=== PATIENT | male | born 1975 | race Caucasian/White ===

== ENCOUNTER 2023-12-21 13:24 | Inpatient (IN) | payer OTHER ==
--- NOTE | 2023-12-21 13:49 | ED ---
General Adult HPI - General Source: patient, RN notes reviewed <Sara Ledesma - Last Filed: 12/21/23 13:51> - General Source: RN notes reviewed <Joie Catherine - Last Filed: 12/21/23 19:26> - General Stated complaint: chest pain Time Seen by Provider: 12/21/23 13:40 - History of Present Illness Initial comments: Quick Note-this is a 48-year-old male presents emergency department chief complaint of left lower extremity edema. Patient was at [facility] attempting to be admitted for alcohol and heroin abuse for he was referred to report to the emergency department for evaluation of possible lower extremity infection. P atient states that he has not used heroin in the past 3 days and is beginning to experience withdrawal symptoms. (Sara Ledesma) 48 year old male presenting to the ER with chief complaint of swelling in his legs x 1 week. he was sent by by [facility] where he was attempting to be admitted for alcohol and opioid withdrawal. last use was 3 days ago. he states he has had this swelling in the legs before which usually resolves with compression socks. denies history of CHF or CKD. states he is having anxiousness, sweating, and diarrhea. denies chest pain or shortness of breath . (Joie Catherine) - Related Data Home Medications Medication Instructions Recorded Confirmed No Known Home Medications 12/21/23 12/21/23 Allergies Allergy/AdvReac Type Severity Reaction Status Date / Time No Known Allergies Allergy Verified 12/21/23 16:50 Review of Systems ROS Other: All systems not noted in ROS Statement are negative. <Sara Ledesma - Last Filed: 12/21/23 13:51> ROS Other: All systems not noted in ROS Statement are negative. <Joie Catherine - Last Filed: 12/21/23 19:26> ROS Statement: Those systems with pertinent positive or pertinent negative responses have been documented in the HPI. General Exam <Sara Ledesma - Last Filed: 12/21/23 13:51> General appearance: alert, in no apparent distress Head exam: Present: atraumatic, normocephalic, normal inspection Eye exam: Present: normal appearance, PERRL, EOMI. Absent: scleral icterus, conjunctival injection, periorbital swelling ENT exam: Present: normal exam, mucous membranes moist Neck exam: Present: normal inspection. Absent: tenderness, meningismus, lymphadenopathy Respiratory exam: Present: normal lung sounds bilaterally. Absent: respiratory distress, wheezes, rales, rhonchi, stridor Cardiovascular Exam: Present: regular rate, normal rhythm, normal heart sounds. Absent: systolic murmur, diastolic murmur, rubs, gallop, clicks Extremities exam: Present: full ROM, normal capillary refill. Absent: normal inspection (bilateral lower extremities are erythematous with 2 + pitting edema b/l. dorsalis pedis pulses and sensation intact), tenderness, pedal edema, joint swelling, calf tenderness Neurological exam: Present: alert, oriented X3, CN II-XII intact Psychiatric exam: Present: normal affect, normal mood, anxious Skin exam: Present: warm, dry, intact, normal color. Absent: rash <Joie Catherine - Last Filed: 12/21/23 19:26> - General Exam Comments Initial Comments: Visual Physical Exam Vital signs reviewed General: Well-appearing, nontoxic, no acute distress. Head: Normocephalic, atraumatic Eyes: PERRLA, EOMI ENT: Airway patent Chest: Nonlabored breathing Skin: No visual rash, normal skin tone Neuro: Alert and oriented 3 Musculoskeletal: No gross abnormalities (Sara Ledesma) Course Vital Signs 12/21/23 12/21/23 13:54 17:03 Temperature 98.1 F 98.1 F Pulse Rate 106 H 106 H Respiratory 18 18 Rate Blood Pressure 141/84 136/86 O2 Sat by Pulse 95 96 Oximetry Medical Decision Making <Sara Ledesma - Last Filed: 12/21/23 13:51> - Lab Data Result diagrams: 12/21/23 15:45 12/21/23 15:45 <Joie Catherine - Last Filed: 12/21/23 19:26> - Medical Decision Making I completed the quick note portion of this chart signed Sara Ledesma PA-C (Sara Ledesma) Was pt. sent in by a medical professional or institution ([facility], [facility], urgent care, hospital, or detention...) When possible be specific @ -Sent by [facility] for bilateral leg swelling Did you speak to anyone other than the patient for history (EMS, parent, family, police, friend...)? What history was obtained from this source @ -No Did you review nursing and triage notes (agree or disagree)? Why? @ -I reviewed and agree with nursing and triage notes Were old charts reviewed (outside hosp., previous admission, EMS record, old EKG, old radiological studies, urgent care reports/EKG's, detention records)? Report findings @ -No old charts were reviewed Differential Diagnosis (chest pain, altered mental status, abdominal pain women, abdominal pain men, vaginal bleeding, weakness, fever, dyspnea, syncope, headache, dizziness, GI bleed, back pain, seizure, CVA, palpatations, mental health, musculoskeletal)? @ -Cellulitis, DVT, CHF, CKD, alcohol withdrawal EKG interpreted by me (3pts min.). @ -None X-rays interpreted by me (1pt min.). @ -None done CT interpreted by me (1pt min.). @ -None done U/S interpreted by me (1pt. min.). @ -Ultrasound of left leg reveals no DVT. Ultrasound of right leg reveals internal echoes within the right common femoral vein, recommended further imaging. Repeat ultrasound revealed some chronic partially occlusive DVT is present, no convincing evidence for acute DVT in right lower extremity. What testing was considered but not performed or refused? (CT, X-rays, U/S, labs)? Why? @ -None What meds were considered but not given or refused? Why? @ -None Did you discuss the management of the patient with other professionals (professionals i.e. , PA, BUSBOY, lab, RT, psych nurse, social work coordinator, dishroom attendant, teacher, animal services officer, case monitor)? Give summary @ -Case discussed with Anca from [facility] who accepts admission at this time for acute alcohol withdrawal with hypomagnesemia with request to consult vascular at this time. Discussed case with Dr. Hood who recommended no anticoagulation at this time as ultrasound showed DVT was chronic in nature. Was smoking cessation discussed for >3mins.? @ -No Was critical care preformed (if so, how long)? @ -No Were there social determinants of health that impacted care today? How? (Homele ssness, low income, unemployed, alcoholism, drug addiction, transportation, low edu. Level, literacy, decrease access to med. care, longterm, rehab)? @ -Alcoholism Was there de-escalation of care discussed even if they declined (Discuss DNR or withdrawal of care, Hospice)? DNR status @ -No What co-morbidities impacted this encounter? (DM, HTN, Smoking, COPD, CAD, Cancer, CVA, ARF, Chemo, Hep., AIDS, mental health diagnosis, sleep apnea, morbid obesity)? @ -None Was patient admitted / discharged? Hospital course, mention meds given and route, prescriptions, significant lab abnormalities, going to OR and other pertinent info. @ -Patient was admitted. Patient was seen and evaluated for bilateral leg swelling x 1 week sent by [facility]. He is currently withdrawing from heroin and alcohol, last use was 3 days ago. Upon initial evaluation, patient is tachycardic at 106 bpm. He appears anxious. There is 2+ pitting edema in bilateral lower extremities. Patient is given Ativan. Ultrasound showed chronic partially occlusive DVT. He is not currently on anticoagulation. Labs remarkable for hypomagnesemia at 1.5. Patient was given IV magnesium at this time. Case discussed with Anca from [facility] who accepts admission at this time and requests consult to vascular. Case discussed with Dr. Hood from vascular who recommends not starting anticoagulation at this time as D ultrasound showed DVT is chronic in nature. Case discussed with my attending Dr. Celis Undiagnosed new problem with uncertain prognosis? @ -No Drug Therapy requiring intensive monitoring for toxicity (Heparin, Nitro, Insulin, Cardizem)? @ -No Were any procedures done? @ -No Diagnosis/symptom? @ -Acute alcohol withdrawal, hypomagnesemia, chronic DVT Acute, or Chronic, or Acute on Chronic? @ -Acute Uncomplicated (without systemic symptoms) or Complicated (systemic symptoms)? @ -Complicated Side effects of treatment? @ -No Exacerbation, Progression, or Severe Exacerbation? @ -No Poses a threat to life or bodily function? How? (Chest pain, [place], [place], pneumonia, PE, COPD, DKA, ARF, appy, cholecystitis, CVA, Diverticulitis, Homicidal, Suicidal, threat to staff... and all critical care pts) @ -Yes, alcohol withdrawal (Joie Catherine) - Lab Data Lab Results 12/21/23 12/21/23 12/21/23 Range/Units 15:45 15:45 15:45 WBC 7.2 (3.8-10.6) k/uL RBC 4.03 L (4.30-5.90) m/uL Hgb 12.4 L (13.0-17.5) gm/dL Hct 38.9 L (39.0-53.0) % MCV 96.5 (80.0-100.0) fL MCH 30.7 (25.0-35.0) pg MCHC 31.9 (31.0-37.0) g/dL RDW 13.4 (11.5-15.5) % Plt Count 210 (150-450) k/uL MPV 8.2 Neutrophils % 64 % Lymphocytes % 19 % Monocytes % 11 % Eosinophils % 4 % Basophils % 1 % Neutrophils # 4.6 (1.3-7.7) k/uL Lymphocytes # 1.4 (1.0-4.8) k/uL Monocytes # 0.8 (0-1.0) k/uL Eosinophils # 0.3 (0-0.7) k/uL Basophils # 0.0 (0-0.2) k/uL Sodium 136 L (137-145) mmol/L Potassium 3.8 (3.5-5.1) mmol/L Chloride 103 (98-107) mmol/L Carbon Dioxide 29 (22-30) mmol/L Anion Gap 4 mmol/L BUN 17 (9-20) mg/dL Creatinine 0.61 L (0.66-1.25) mg/dL Est GFR (CKD-EPI)AfAm >90 (>60 ml/min/1.73 sqM) Est GFR (CKD-EPI)NonAf >90 (>60 ml/min/1.73 sqM) Glucose 75 (74-99) mg/dL Plasma Lactic Acid Beau (0.7-2.0) mmol/L Calcium 8.9 (8.4-10.2) mg/dL Magnesium 1.5 L (1.6-2.3) mg/dL Total Bilirubin 0.6 (0.2-1.3) mg/dL AST 44 (17-59) U/L ALT 22 (4-49) U/L Alkaline Phosphatase 99 (38-126) U/L Total Protein 6.5 (6.3-8.2) g/dL Albumin 3.9 (3.5-5.0) g/dL Urine Color Yellow Urine Appearance Clear (Clear) Urine pH 6.0 (5.0-8.0) Ur Specific Amery 1.029 (1.001-1.035) Urine Protein Trace H (Negative) Urine Glucose (UA) Negative (Negative) Urine Ketones Negative (Negative) Urine Blood Negative (Negative) Urine Nitrite Negative (Negative) Urine Bilirubin Negative (Negative) Urine Urobilinogen 2.0 (<2.0) mg/dL Ur Leukocyte Esterase Negative (Negative) Urine Opiates Screen Not Detected (NotDetected) Ur Oxycodone Screen Not Detected (NotDetected) Urine Methadone Screen Not Detected (NotDetected) Ur Barbiturates Screen Not Detected (NotDetected) U Tricyclic Antidepress Not Detected (NotDetected) Ur Phencyclidine Scrn Not Detected (NotDetected) Ur Amphetamines Screen Not Detected (NotDetected) U Methamphetamines Scrn Not Detected (NotDetected) U Benzodiazepines Scrn Detected H (NotDetected) Urine Cocaine Screen Not Detected (NotDetected) U Marijuana (THC) Screen Not Detected (NotDetected) 12/21/23 Range/Units 15:45 WBC (3.8-10.6) k/uL RBC (4.30-5.90) m/uL Hgb (13.0-17.5) gm/dL Hct (39.0-53.0) % MCV (80.0-100.0) fL MCH (25.0-35.0) pg MCHC (31.0-37.0) g/dL RDW (11.5-15.5) % Plt Count (150-450) k/uL MPV Neutrophils % % Lymphocytes % % Monocytes % % Eosinophils % % Basophils % % Neutrophils # (1.3-7.7) k/uL Lymphocytes # (1.0-4.8) k/uL Monocytes # (0-1.0) k/uL Eosinophils # (0-0.7) k/uL Basophils # (0-0.2) k/uL Sodium (137-145) mmol/L Potassium (3.5-5.1) mmol/L Chloride (98-107) mmol/L Carbon Dioxide (22-30) mmol/L Anion Gap mmol/L BUN (9-20) mg/dL Creatinine (0.66-1.25) mg/dL Est GFR (CKD-EPI)AfAm (>60 ml/min/1.73 sqM) Est GFR (CKD-EPI)NonAf (>60 ml/min/1.73 sqM) Glucose (74-99) mg/dL Plasma Lactic Acid Beau 1.5 (0.7-2.0) mmol/L Calcium (8.4-10.2) mg/dL Magnesium (1.6-2.3) mg/dL Total Bilirubin (0.2-1.3) mg/dL AST (17-59) U/L ALT (4-49) U/L Alkaline Phosphatase (38-126) U/L Total Protein (6.3-8.2) g/dL Albumin (3.5-5.0) g/dL Urine Color Urine Appearance (Clear) Urine pH (5.0-8.0) Ur Specific Amery (1.001-1.035) Urine Protein (Negative) Urine Glucose (UA) (Negative) Urine Ketones (Negative) Urine Blood (Negative) Urine Nitrite (Negative) Urine Bilirubin (Negative) Urine Urobilinogen (<2.0) mg/dL Ur Leukocyte Esterase (Negative) Urine Opiates Screen (NotDetected) Ur Oxycodone Screen (NotDetected) Urine Methadone Screen (NotDetected) Ur Barbiturates Screen (NotDetected) U Tricyclic Antidepress (NotDetected) Ur Phencyclidine Scrn (NotDetected) Ur Amphetamines Screen (NotDetected) U Methamphetamines Scrn (NotDetected) U Benzodiazepines Scrn (NotDetected) Urine Cocaine Screen (NotDetected) U Marijuana (THC) Screen (NotDetected) Disposition <Sara Ledesma - Last Filed: 12/21/23 13:51> Time of Disposition: 19:20 <Joie Catherine - Last Filed: 12/21/23 19:26> Clinical Impression: Alcohol withdrawal, Hypomagnesemia Disposition: ADMITTED IP TO THIS [facility] Referrals: None,Stated [Primary Care Provider] - 1-2 days
--- NOTE | 2023-12-21 15:23 | US ---
EXAMINATION TYPE: US venous doppler duplex LE LT DATE OF EXAM: 12/21/2023 3:07 PM COMPARISON: NONE CLINICAL INDICATION: Male, 48 years old with history of erythema, edema, pain; redness and swelling i n lt leg. Hx of DVT. Not on blood thinners SIDE PERFORMED: Left TECHNIQUE: The lower extremity deep venous system is examined utilizing real time linear array sonog arsenio with graded compression, doppler sonography and color-flow sonography. VESSELS IMAGED: Common Femoral Vein Deep Femoral Vein Greater Saphenous Vein * Femoral Vein Popliteal Vein Small Saphenous Vein * Proximal Calf Veins (* superficial vessels) Right Leg: Echoes seen in the CFV, but with mostly compressible and good blood flow. Left Leg: No evidence for DVT IMPRESSION: 1. No diagnostic evidence of DVT left lower extremity. 2. Internal echoes within the right common femoral vein incompletely evaluated recommend ultrasound o f the right lower extremity. Cannot exclude right lower extremity DVT. Correlate clinically.
--- NOTE | 2023-12-21 16:05 | US ---
EXAMINATION TYPE: US venous doppler duplex LE RT DATE OF EXAM: 12/21/2023 3:23 PM COMPARISON: NONE CLINICAL INDICATION: Male, 48 years old with history of pain; Pt aware of chronic DVT. Not on blood t hinners SIDE PERFORMED: Right TECHNIQUE: The lower extremity deep venous system is examined utilizing real time linear array sonog arsenio with graded compression, doppler sonography and color-flow sonography. VESSELS IMAGED: Common Femoral Vein Deep Femoral Vein Greater Saphenous Vein * Femoral Vein Popliteal Vein Small Saphenous Vein * Proximal Calf Veins (* superficial vessels) Right Leg: Echoes seen from CFV to distal popliteal vein. The veins appear mostly compressible and t here is good blood flow throughout. Grayscale, color doppler, spectral doppler imaging performed of the deep veins of the right lower ext remity. There is normal flow, compressibility, vascular waveforms. IMPRESSION: Some chronic partially occlusive DVT is felt present. No convincing evidence for acute D VT in the right lower extremity.
[2023-12-21] MEDS: LORazepam 2 MG/ML INJ IV STA (17:10)
[2023-12-21 17:27] LABS: Basophils % (A) 1 %; Eosinophils # (A) 0.3 k/uL (0-0.7); Eosinophils % (A) 4 %; HCT 38.9 % (39.0-53.0); HGB 12.4 gm/dL (13.0-17.5); Lymphocytes # (A) 1.4 k/uL (1.0-4.8); Lymphocytes % (A) 19 %; MCH 30.7 pg (25.0-35.0); MCHC 31.9 g/dL (31.0-37.0); MCV 96.5 fL (80.0-100.0); Mean Platelet Volume 8.2; Monocytes # (A) 0.8 k/uL (0-1.0); Monocytes % (A) 11 %; Neutrophils # (A) 4.6 k/uL (1.3-7.7); Neutrophils % (A) 64 %; Platelet Count 210 k/uL (150-450); RBC 4.03 m/uL (4.30-5.90); RDW 13.4 % (11.5-15.5); WBC 7.2 k/uL (3.8-10.6)
[2023-12-21 17:42] LABS: ALT 22 U/L (4-49); African American GFR (CKD) >90 (>60 ml/min/1.73 sqM); Albumin 3.9 g/dL (3.5-5.0); Anion Gap 4 mmol/L; Blood Urea Nitrogen 17 mg/dL (9-20); Calcium 8.9 mg/dL (8.4-10.2); Carbon Dioxide 29 mmol/L (22-30); Chloride 103 mmol/L (98-107); Glucose 75 mg/dL (74-99); Non-African American GFR(CKD) >90 (>60 ml/min/1.73 sqM); Sodium 136 mmol/L (137-145); Total Bilirubin 0.6 mg/dL (0.2-1.3); Total Protein 6.5 g/dL (6.3-8.2)
[2023-12-21 17:47] LABS: Appearance,Urine Clear (Clear); Bilirubin,Urine Negative (Negative); Blood,Urine Negative (Negative); Color,Urine Yellow; Glucose,Urine (UA) Negative (Negative); Ketones,Urine Negative (Negative); Leukocyte Esterase,Urine Negative (Negative); Nitrite,Urine Negative (Negative); Protein,Urine Trace (Negative); Specific Gravity,Urine 1.029 (1.001-1.035)
[2023-12-21 18:06] LABS: Potassium 3.8 mmol/L (3.5-5.1)
[2023-12-21 18:07] LABS: AST 44 U/L (17-59); Alkaline Phosphatase 99 U/L (38-126); Magnesium 1.5 mg/dL (1.6-2.3)
[2023-12-21 18:08] LABS: Amphetamine Screen,Urine Not Detected (NotDetected); Barbiturate Screen,Urine Not Detected (NotDetected); Benzodiazepines Screen,Urine Detected (NotDetected); Cocaine Screen,Urine Not Detected (NotDetected); Methadone Screen, Urine Not Detected (NotDetected); Opiate Screen,Urine Not Detected (NotDetected); Oxycodone Screen, Urine Not Detected (NotDetected); Phencyclidine Screen,Urine Not Detected (NotDetected); Tricyclic Antidepressant,Urine Not Detected (NotDetected); Urn Cannabinoid Scrn Not Detected (NotDetected)
[2023-12-21] MEDS ORDERED: NALOXONE 0.4 MG/ML 1 ML VIAL IV PRN (19:13)
[2023-12-21] MEDS ORDERED: Magnesium Replacement Protocol 1 EACH MISC MISCELLANE PRN (19:18)
[2023-12-21] MEDS: MAGNESIUM SULFATE-D5W PMX 1 GM in DEXTROSE/WATER 1 100ML.BAG IVPB SCH (21:42)
[2023-12-22] MEDS: LORazepam 2 MG/ML INJ IV PRN ×3 (01:25→21:06)
[2023-12-22] MEDS: ACETAMINOPHEN TAB 325 MG TAB PO PRN (08:13)
[2023-12-22] MEDS: PANTOPRAZOLE 40 MG TABLET PO SCH (08:13)
[2023-12-22] MEDS: LORazepam 1 MG TAB PO PRN (08:13)
[2023-12-22] MEDS: FUROSEMIDE 10 MG/ML 4 ML VIAL IV SCH (10:17)
[2023-12-22] MEDS: KETOROLAC 15 MG/ML 1 ML VIAL IVP PRN (10:17)
--- NOTE | 2023-12-22 10:47 | P.GSCN ---
History of Present Illness Consult date: 12/22/23 Reason for Consult: DVT Requesting physician: Joie Catherine History of present illness: This is a 48-year-old male who was sent into the emergency department by [facility] for evaluation of bilateral lower extremity leg swelling. He has a past medical history including hypertension, bilateral deep vein thrombosis, factor V Leiden, IV drug abuse and alcoholism. Patient states he was being admitted to [facility] for rehab for care when and alcohol addiction. States he has been an addict and abused alcohol for the past 25 years. He states he has a history of bilateral lower extremity blood clots and that was many years ago and he was told it was secondary to factor V Leiden. He is currently not on any an ticoagulation. He states that he was on Coumadin in the past. He is currently homeless and was evicted from his most recent home. He is from the [facility] and states that is his intention to go back to. Denies any shortness of breath, chest pain, abdominal pain or lower extremity pain. States swelling is chronic. Worse on the left than right. He is currently going through withdrawal symp toms. He had bilateral lower extremity venous duplex which had findings of chronic right lower extremity DVT. Vascular surgery was consulted for DVT. Patient was started on Xarelto 20 mg daily by primary medical team. Review of Systems A 14 point review systems was completed all pertinent positives and negatives as stated in the HPI. Past Medical History Past Medical History: Deep Vein Thrombosis (DVT), GERD/Reflux, Hyperlipidemia, Hypertension Additional Past Medical History / Comment(s): Factor 5, ETOH, Heroin, Smoker, OD 25 years ago old trach scar. History of Any Multi-Drug Resistant Organisms: None Reported Past Surgical History: Orthopedic Surgery Additional Past Surgical History / Comment(s): left hip total replacement -October 2023 Past Anesthesia/Blood Transfusion Reactions: No Reported Reaction Past Psychological History: Anxiety Smoking Status: Current some day smoker Past Alcohol Use History: Abuse, Daily Past Drug Use History: Heroin - Past Family History Mother Family Medical History: CVA/TIA, Myocardial Infarction ([place]) Additional Family Medical History / Comment(s): Passed at 59 from [place] Father Additional Family Medical History / Comment(s): Prostate CA Sister(s) Family Medical History: Myocardial Infarction ([place]) Additional Family Medical History / Comment(s): Passed at 47 from [place] Medications and Allergies Home Medications Medication Instructions Recorded Confirmed Type No Known Home Medications 12/21/23 12/21/23 History Allergies Allergy/AdvReac Type Severity Reaction Status Date / Time No Known Allergies Allergy Verified 12/21/23 16:50 Surgical - Exam Vital Signs Temp Pulse Resp BP Pulse Ox 98.1 F 106 H 18 141/84 95 12/21/23 13:54 12/21/23 13:54 12/21/23 13:54 12/21/23 13:54 12/21/23 13:54 General appearance: The patient is alert, oriented, appears in no acute distress. Obese. HET: Head is normocephalic and atraumatic. Pupils are equal and reactive. Neck: Supple. Heart: Regular. Lungs: Equal expansion, normal respiratory effort. Abdomen: Soft, nontender, nondistended. Extremities: Bilateral lower extremity swelling, venous stasis dermatitis, palpable DP pulses. Neurological: No focal deficits. Strength and sensation are grossly intact. Results - Labs 12/21/23 15:45 12/21/23 15:45 Abnormal Lab Results - Last 24 Hours (Table) 12/21/23 12/21/23 12/21/23 Range/Units 15:45 15:45 15:45 RBC 4.03 L (4.30-5.90) m/uL Hgb 12.4 L (13.0-17.5) gm/dL Hct 38.9 L (39.0-53.0) % Sodium 136 L (137-145) mmol/L Creatinine 0.61 L (0.66-1.25) mg/dL Magnesium 1.5 L (1.6-2.3) mg/dL Urine Protein Trace H (Negative) U Benzodiazepines Scrn Detected H (NotDetected) Diabetes panel 12/21/23 Range/Units 15:45 Sodium 136 L (137-145) mmol/L Potassium 3.8 (3.5-5.1) mmol/L Chloride 103 (98-107) mmol/L Carbon Dioxide 29 (22-30) mmol/L BUN 17 (9-20) mg/dL Creatinine 0.61 L (0.66-1.25) mg/dL Glucose 75 (74-99) mg/dL Calcium 8.9 (8.4-10.2) mg/dL AST 44 (17-59) U/L ALT 22 (4-49) U/L Alkaline Phosphatase 99 (38-126) U/L Total Protein 6.5 (6.3-8.2) g/dL Albumin 3.9 (3.5-5.0) g/dL Calcium panel 12/21/23 Range/Units 15:45 Calcium 8.9 (8.4-10.2) mg/dL Albumin 3.9 (3.5-5.0) g/dL Pituitary panel 12/21/23 Range/Units 15:45 Sodium 136 L (137-145) mmol/L Potassium 3.8 (3.5-5.1) mmol/L Chloride 103 (98-107) mmol/L Carbon Dioxide 29 (22-30) mmol/L BUN 17 (9-20) mg/dL Creatinine 0.61 L (0.66-1.25) mg/dL Glucose 75 (74-99) mg/dL Calcium 8.9 (8.4-10.2) mg/dL Adrenal panel 12/21/23 Range/Units 15:45 Sodium 136 L (137-145) mmol/L Potassium 3.8 (3.5-5.1) mmol/L Chloride 103 (98-107) mmol/L Carbon Dioxide 29 (22-30) mmol/L BUN 17 (9-20) mg/dL Creatinine 0.61 L (0.66-1.25) mg/dL Glucose 75 (74-99) mg/dL Calcium 8.9 (8.4-10.2) mg/dL Total Bilirubin 0.6 (0.2-1.3) mg/dL AST 44 (17-59) U/L ALT 22 (4-49) U/L Alkaline Phosphatase 99 (38-126) U/L Total Protein 6.5 (6.3-8.2) g/dL Albumin 3.9 (3.5-5.0) g/dL - Imaging Comments: Left lower extremity venous duplex reports right leg echo seen in the CF V, but with mostly compressible and good blood flow. Left leg with no evidence for DVT. Right lower extremity venous duplex reports some chronic partially occlusive DVT is felt present. No convincing evidence for acute DVT in the right lower extremity. Assessment and Plan Assessment: 1. Lower extremity swelling 2. Chronic right lower extremity DVT 3. History of factor V Leiden 4. History of bilateral lower extremity DVTs 5. Obesity 6. Venous insufficiency with venous stasis dermatitis 7. IV drug abuse 8. Alcohol abuse Plan: 1. Recommend elevating lower extremities 2. Apply bilateral lower extremity knee-high compression stockings 3. Recommend weight loss 4. There is no indication for anticoagulation for chronic DVT from a vascular surgical standpoint however patient is reporting history of factor V Leiden with previous DVT 5. Will consult hematology secondary to history of factor V Leiden and previous DVT for anticoagulation recommendations 6. No further intervention recommended by vascular surgery 7. Rest of medical management per primary medical team Thank you for this consultation, we will sign off at this time. The impression and plan of care has been dictated as directed. Dr. Cruz I performed a history and examination of this patient, discussed the same with the dictator. I agree with the dictator's note ,documented as a scribe. Any additional findings or plans will be noted.
[2023-12-22] MEDS ORDERED: LORazepam 2 MG/ML INJ IV PRN (11:52)
[2023-12-22] MEDS: chlordiazePOXIDE 25 MG CAP PO SCH (12:11)
[2023-12-22] MEDS: MAGNESIUM SULFATE-D5W PMX 1 GM in DEXTROSE/WATER 1 100ML.BAG IVPB ONE (14:44)
[2023-12-22] MEDS: RIVAROXABAN 20 MG TAB PO SCH (16:44)
--- NOTE | 2023-12-22 17:17 | P.CONS ---
History of Present Illness - Reason for Consult Consult date: 12/22/23 factor V, Hx DVT Requesting physician: Indira Fernandez - Chief Complaint ETOH withdrawal - History of Present Illness Mr. Gaines is a 48-year-old male we have been asked to see because of a reported history of factor V. Patient does not remember when he was diagnosed with factor V or who diagnosed him. He reports he was 18 years old when he had his first clot. He states that he has had clots in his arms, legs and lungs. He has taken blood thinners in the past, Coumadin. He has not recently been on anticoagulation due to his homeless situation and inability to obtain medications. There is family history of myocardial infarction and stroke. Patient not wanting to share much of his history. He is preparing for withdrawals. Review of Systems Focused review of systems is as stated in HPI Past Medical History Past Medical History: Deep Vein Thrombosis (DVT), GERD/Reflux, Hyperlipidemia, Hypertension Additional Past Medical History / Comment(s): Factor 5, ETOH, Heroin, Smoker, OD 25 years ago old trach scar. History of Any Multi-Drug Resistant Organisms: None Reported Past Surgical History: Orthopedic Surgery Additional Past Surgical History / Comment(s): left hip total replacement -October 2023 Past Anesthesia/Blood Transfusion Reactions: No Reported Reaction Past Psychological History: Anxiety Smoking Status: Current some day smoker Past Alcohol Use History: Abuse, Daily Past Drug Use History: Heroin - Past Family History Mother Family Medical History: CVA/TIA, Myocardial Infarction ([place]) Additional Family Medical History / Comment(s): Passed at 59 from [place] Father Additional Family Medical History / Comment(s): Prostate CA Sister(s) Family Medical History: Myocardial Infarction ([place]) Additional Family Medical History / Comment(s): Passed at 47 from [place] Medications and Allergies Home Medications Medication Instructions Recorded Confirmed Type No Known Home Medications 12/21/23 12/21/23 History Allergies Allergy/AdvReac Type Severity Reaction Status Date / Time No Known Allergies Allergy Verified 12/21/23 16:50 Physical Exam Vitals: Vital Signs Temp Pulse Pulse Resp BP BP Pulse Ox 12/22/23 11:51 97.8 F 91 16 127/81 96 12/22/23 07:42 97.6 F 102 H 20 154/84 96 12/22/23 01:51 16 12/22/23 00:20 147/89 12/22/23 00:04 97.7 F 101 H 16 165/108 94 L 12/21/23 23:47 95 12/21/23 23:30 94 92 L 12/21/23 21:12 98.3 F 95 20 142/90 92 L 12/21/23 17:03 98.1 F 106 H 18 136/86 96 Intake and Output 12/22/23 12/22/23 12/22/23 06:59 14:59 22:59 Intake Total 400 Balance 400 Intake: Oral 400 Other: Voiding Method Toilet # Voids 2 Weight 147.418 kg - Constitutional General appearance: morbidly obese, no acute distress - EENT Eyes: anicteric sclerae, EOMI ENT: hearing grossly normal - Respiratory resp even and unlabored at rest leg Peripheral Edema: bilateral: 1+ - Integumentary skin of the BLE is bronzed c/w venous insufficiency - Neurologic Neurologic: CNII-XII intact - Musculoskeletal Musculoskeletal: generalized weakness, strength equal bilaterally - Psychiatric Psychiatric: A&O x's 3 Results CBC & Chem 7: 12/21/23 15:45 12/21/23 15:45 Labs: Abnormal Lab Results - Last 24 Hours (Table) 12/21/23 12/21/23 12/21/23 Range/Units 15:45 15:45 15:45 RBC 4.03 L (4.30-5.90) m/uL Hgb 12.4 L (13.0-17.5) gm/dL Hct 38.9 L (39.0-53.0) % Sodium 136 L (137-145) mmol/L Creatinine 0.61 L (0.66-1.25) mg/dL Magnesium 1.5 L (1.6-2.3) mg/dL Urine Protein Trace H (Negative) U Benzodiazepines Scrn Detected H (NotDetected) Venous US: report reviewed Assessment and Plan Plan: Patient reported factor V Leiden mutation -No records available in this EMR to confirm patient's reports -Factor V leiden mutation lab work has been ordered. APL labs have been ordered because of history of blood clots at young age -Patient is currently on treatment dose Xarelto. Agree with that plan at this time -Doppler of the bilateral lower extremities did not reveal any acute DVT. Chronic DVT is seen in the right lower extremity. -Will give final recommendations for anticoagulation based on workup and patient's hospital course
--- NOTE | 2023-12-22 18:51 | XR ---
EXAMINATION TYPE: XR chest 1V DATE OF EXAM: 12/22/2023 3:49 PM CLINICAL INDICATION:Male, 48 years old with history of CHF; PH[facility] COMPARISON: None TECHNIQUE: XR chest 1V Portable AP radiograph of the chest.. FINDINGS: Loop recorder projects over the low chest just left of midline. Lung volumes are low, causing crowding of the vascular markings and likely exaggerating the cardiac m ediastinal silhouette, which appears moderately enlarged. Background mild chronic interstitial coarsening suggested, which can be seen with COPD. There are andi e interspersed stranding interstitial opacities, greatest left at the left lung base adjacent to the elevated stranding left hemidiaphragm. Diffuse degenerative changes without gross evidence of acute bony pathology. Asymmetric elevation the left hemidiaphragm, with unremarkable bowel contents beneath. IMPRESSION: 1. Cardiomegaly. Tortuous aorta. 2. Low lung volume exam. Platelike atelectasis in the left lung base. Lesser interstitial changes/sc arring elsewhere.
--- NOTE | 2023-12-22 22:49 | P.HPIM ---
History of Present Illness H&P Date: 12/22/23 Patient is a 48 year old male with medical history of heroin and alcohol use. Patient also has history of heart failure and recent left hip replacement 2 months ago, DVT and factor 5. Patient came to [place] for rehab came over from the [facility]. He was sent to the hospital by [place] due to lower extremity edema and concern for DVT. Bilateral lower extremity doppler taken reveals chronic DVT in the right leg and no DVT in the left leg. Due to the factor 5 deficiency xarelto has been started. Was on coumadin in the past. Patient denies any shortness of breath he is not having any chest pain. He does states his EF has been 40% in the past. Blood work reveals hgb 12.4, sodium 136, BUN 17, creatinine 0.61, magnesium 1.5. Urinalysis not suggestive of infection and drug toxicology showing benzodiazepines. He was admitted to the hospital with consult placed to vascular surgery. Has been started on ativan ciwa and librium for the withdrawal symptoms. Recommending to repeat an Echocardiogram. REVIEW OF SYSTEMS: CONSTITUTIONAL: No fever, no malaise, no fatigue. HEENT: No recent visual problems or hearing problems. Denied any sore throat. CARDIOVASCULAR: No chest pain, orthopnea, PND, no palpitations, no syncope. PULMONARY: No shortness of breath, no cough, no hemoptysis. GASTROINTESTINAL: No diarrhea, no nausea, no vomiting, no abdominal pain. NEUROLOGICAL: No headaches, no weakness, no numbness. HEMATOLOGICAL: Denies any bleeding or petechiae. GENITOURINARY: Denies any burning micturition, frequency, or urgency. MUSCULOSKELETAL/RHEUMATOLOGICAL: Denies any joint pain, or any muscle pain. Reports LE edema. ENDOCRINE: Denies any polyuria or polydipsia. The rest of the 14-point review of systems is negative. PHYSICAL EXAMINATION: GENERAL: The patient is alert and oriented x3, not in any acute distress. Well developed, well nourished. Obese. HEENT: Pupils are round and equally reacting to light. EOMI. No scleral icterus. No conjunctival pallor. Normocephalic, atraumatic. No pharyngeal erythema. No thyromegaly. CARDIOVASCULAR: S1 and S2 present. No murmurs, rubs, or gallops. PULMONARY: Chest is clear to auscultation, no wheezing or crackles. ABDOMEN: Soft, nontender, nondistended, normoactive bowel sounds. No palpable organomegaly. MUSCULOSKELETAL: No joint swelling or deformity. EXTREMITIES: No cyanosis, clubbing. +2-3 pitting lower extremity edema. NEUROLOGICAL: Gross neurological examination did not reveal any focal deficits. SKIN: No rashes. Assessment and Plan Polysubstance abuse with IV heroin and alcohol use started on IV ativan CIWA protocol and oral librium scheduled Generalized pain likely from heroin withdrawal given IV toradol and tylenol. Recommend to avoid narcotics at this time History of heart failure systolic dysfunction repeat echocardiogram Venous stasis dermatitis /venous insufficiency and lower extremity edema started on IV lasix 40 mg Q12h recommending for SANDRA wrap bilateral lower extremities Hx of chronic right sided DVT and Factor 5 Leiden Deficiency resumed on xarelto. Hematology and vascular consultation Hx of GERD on protonix BID Hyperlipidemia not on statin therapy Hypertension currently normotensive Left total hip arthroplasty in October 2023 Obesity Chronic nicotine use GI prophylaxis DVT prophylaxis Full Code The impression and plan of care has been dictated by Mary Patel, Nurse Practitioner as directed. Dr. Joss MD I have performed a history and physical examination and medical decision making of this patient, discussed the same with the dictator, and agree with the dictators assessment and plan as written, documented as a scribe. Based on total visit time, I have performed more than 50% of this visit. Past Medical History Past Medical History: Deep Vein Thrombosis (DVT), GERD/Reflux, Hyperlipidemia, Hypertension Additional Past Medical History / Comment(s): Factor 5, ETOH, Heroin, Smoker, OD 25 years ago old trach scar. History of Any Multi-Drug Resistant Organisms: None Reported Past Surgical History: Orthopedic Surgery Additional Past Surgical History / Comment(s): left hip total replacement -October 2023 Past Anesthesia/Blood Transfusion Reactions: No Reported Reaction Past Psychological History: Anxiety Smoking Status: Current some day smoker Past Alcohol Use History: Abuse, Daily Past Drug Use History: Heroin - Past Family History Mother Family Medical History: CVA/TIA, Myocardial Infarction ([place]) Additional Family Medical History / Comment(s): Passed at 59 from [place] Father Additional Family Medical History / Comment(s): Prostate CA Sister(s) Family Medical History: Myocardial Infarction ([place]) Additional Family Medical History / Comment(s): Passed at 47 from [place] Medications and Allergies Home Medications Medication Instructions Recorded Confirmed Type No Known Home Medications 12/21/23 12/21/23 History Allergies Allergy/AdvReac Type Severity Reaction Status Date / Time No Known Allergies Allergy Verified 12/21/23 16:50 Physical Exam Vitals: Vital Signs Temp Pulse Pulse Resp BP BP Pulse Ox 12/22/23 07:42 97.6 F 102 H 20 154/84 96 12/22/23 01:51 16 12/22/23 00:20 147/89 12/22/23 00:04 97.7 F 101 H 16 165/108 94 L 12/21/23 23:47 95 12/21/23 23:30 94 92 L 12/21/23 21:12 98.3 F 95 20 142/90 92 L 12/21/23 17:03 98.1 F 106 H 18 136/86 96 12/21/23 13:54 98.1 F 106 H 18 141/84 95 Intake and Output 12/21/23 12/22/23 12/22/23 22:59 06:59 14:59 Intake Total 400 Balance 400 Intake: Oral 400 Other: Voiding Method Toilet # Voids 2 Weight 147.418 kg Results CBC & Chem 7: 12/21/23 15:45 12/21/23 15:45 Labs: Abnormal Lab Results - Last 24 Hours (Table) 12/21/23 12/21/23 12/21/23 Range/Units 15:45 15:45 15:45 RBC 4.03 L (4.30-5.90) m/uL Hgb 12.4 L (13.0-17.5) gm/dL Hct 38.9 L (39.0-53.0) % Sodium 136 L (137-145) mmol/L Creatinine 0.61 L (0.66-1.25) mg/dL Magnesium 1.5 L (1.6-2.3) mg/dL Urine Protein Trace H (Negative) U Benzodiazepines Scrn Detected H (NotDetected) Thrombosis Risk Factor Assmnt - Choose All That Apply Any of the Below Risk Factors Present?: Yes Each Factor Represents 1 point: Age 41-60 years, Obesity (BMI >25), Swollen legs (current) Each Risk Factor Represents 3 Points: History of DVT/PE Thrombosis Risk Factor Assessment Total Risk Factor Score: 6 Thrombosis Risk Factor Assessment Level: High Risk Assessment and Plan Time with Patient: Greater than 30
[2023-12-23 09:04] LABS: Carbon Dioxide 26.4 mmol/L (21.6-31.8); Chloride 102 mmol/L (96-109); Glucose 99 mg/dL (70-110); Magnesium 1.8 mg/dL (1.5-2.4); Potassium 3.6 mmol/L (3.5-5.5); Sodium 138 mmol/L (135-145)
[2023-12-23] MEDS: MAGNESIUM SULFATE-D5W PMX 1 GM in DEXTROSE/WATER 1 100ML.BAG IVPB ONE (10:32)
--- NOTE | 2023-12-23 11:20 | CA ---
Transthoracic Echo Report Name: Marcus Narayanan Age: 48 Gender: M : 1975 Exam Date: 12/23/2023 08:34 Exam Location: [facility] Ht (in): 73 Wt (lb): 325 Ordering Physician: Mary Patel Attending/Referring Phys: [facility] Manager Clary López, JANN Procedure CPT: Indications: chf Cardiac Hx: Technical Quality: Fair Contrast 1: Total Dose (mL): Contrast 2: Total Dose (mL): MEASUREMENTS (Male / Female) Normal Values 2D ECHO LV Diastolic Diameter PLAX 5.0 cm 4.2 - 5.9 / 3.9 - 5.3 cm LV Systolic Diameter PLAX 3.5 cm IVS Diastolic Thickness 0.8 cm 0.6 - 1.0 / 0.6 - 0.9 cm LVPW Diastolic Thickness 1.1 cm 0.6 - 1.0 / 0.6 - 0.9 cm LV Relative Wall Thickness 0.4 LV Diastolic Volume MOD 4C 138.4 cm??? LV Systolic Volume MOD 4C 54.3 cm??? LV Ejection Fraction MOD 4C 60.8 % LV Cardiac Index MOD 4C 2834.7 cm???/min???m??? LV Diastolic Length 4C 8.0 cm LV Systolic Length 4C 7.3 cm LV Diastolic Volume MOD 2C 102.7 cm??? LV Systolic Volume MOD 2C 53.2 cm??? LV Ejection Fraction MOD 2C 48.2 % LV Cardiac Index MOD 2C 1668.3 cm???/min???m??? LV Diastolic Length 2C 9.5 cm LV Systolic Length 2C 8.1 cm M-MODE Aortic Root Diameter MM 3.8 cm LA Systolic Diameter MM 2.9 cm LA Ao Ratio MM 0.8 DOPPLER AV Peak Velocity 100.8 cm/s AV Peak Gradient 4.1 mmHg Mitral E Point Velocity 56.7 cm/s Mitral A Point Velocity 72.7 cm/s Mitral E to A Ratio 0.8 MV Deceleration Time 162.8 ms FINDINGS Left Ventricle Left ventricular ejection fraction is estimated at 55-60 %. Left ventricular cavity size normal. Left ventricular wall thickness normal. No obvious regional wall motion abnormalities. Right Ventricle Moderate right ventricular dilatation. Unable to estimate the right ventricular systolic pressure. Right Atrium Normal right atrial size. No right atrial thrombus or mass seen. Left Atrium Normal left atrial size. No left atrial thrombus or mass present. Mitral Valve Mitral valve thickened. No mitral stenosis, regurgitation or prolapse. Aortic Valve Trileaflet aortic valve. Aortic valve sclerosis. No aortic valve stenosis or regurgitation. Tricuspid Valve Structurally normal tricuspid valve. No tricuspid stenosis, regurgitation or prolapse. Pulmonic Valve Structurally normal pulmonic valve. Mild pulmonic regurgitation. Pericardium No pericardial or pleural effusion. Aorta Mild aortic dilatation at the level of the sinuses of valsalva 38 mm CONCLUSIONS Normal LV send systolic function RV enlargement Previewed by: Dr. Julio Cesar De MD (Electronically Signed) Final Date: 23 December 2023 11:18
--- NOTE | 2023-12-23 12:58 | P.PN ---
Subjective Progress Note Date: 12/23/23 Principal diagnosis: Chronic DVT Patient seen and examined today as a follow-up. He was seen by hematology yesterday who has ordered workup for factor V Leiden. Currently patient is on Xarelto 20 mg daily. He is going through withdrawal and being treated per primary medical team. He has bilateral lower extremity compression stockings on that were delivered by [employer]. He denies any shortness of breath, chest pain, or lower extremity pain. Objective - Vital Signs Vital signs: Vital Signs Temp 97.6 F 12/23/23 07:28 Pulse 93 12/23/23 07:28 Resp 20 12/23/23 07:28 BP 145/95 12/23/23 07:28 Pulse Ox 98 12/23/23 07:28 FiO2 Intake & Output 12/22/23 12/23/23 12/23/23 18:59 06:59 18:59 Intake Total 100 120 Balance 100 120 Intake: Intake, IV Titration 100 Amount Magnesium Sulfate-D5w Pmx 100 1 gm In Dextrose/Water 1 100ml.bag @ 100 mls/hr IVPB ONCE ONE Rx#: [id number] Oral 120 Other: Voiding Method Toilet # Voids 2 - Exam General appearance: The patient is alert, oriented, appears in no acute distress. HET: Head is normocephalic and atraumatic. Pupils are equal and reactive. Neck: Supple. Abdomen: Soft, nondistended. Extremities: Bilateral lower extremity swelling, knee-high compression stockings in place. Neurological: No focal deficits. - Labs CBC & Chem 7: 12/21/23 15:45 12/23/23 05:12 Labs: Abnormal Lab Results - Last 24 Hours (Table) 12/23/23 Range/Units 05:12 Calcium 8.0 L (8.7-10.3) mg/dL Assessment and Plan Assessment: 1. Lower extremity swelling 2. Chronic right lower extremity DVT 3. History of factor V Leiden (per patient) 4. History of bilateral lower extremity DVTs 5. Obesity 6. Venous insufficiency with venous stasis dermatitis 7. IV drug abuse 8. Alcohol abuse Plan: 1. Recommend elevating lower extremities 2. Continue bilateral lower extremity knee-high compression stockings 3. Recommend weight loss 4. There is no indication for anticoagulation for chronic DVT from a vascular surgical standpoint however patient is reporting history of factor V Leiden with previous DVT 5. Continue with recommendations from hematology on anticoagulation 6. No further intervention recommended by vascular surgery 7. Rest of medical management per primary medical team Thank you for this consultation, we will sign off at this time. The impression and plan of care has been dictated as directed. Dr. Hood I performed a history and examination of this patient, discussed the same with the dictator. I agree with the dictator's note ,documented as a scribe. Any additional findings or plans will be noted.
[2023-12-23 13:05] VITALS: BP 130/86; PULSE 90; RESP 16; TEMP 98.2
[2023-12-23] MEDS: POTASSIUM CHLORIDE ER 20 MEQ TAB.ER PO STA (14:48)
[2023-12-23] MEDS ORDERED: QUEtiapine 25 MG TAB PO SCH (21:00)
--- NOTE | 2023-12-24 16:16 | P.DS ---
Providers Date of admission: 12/21/23 19:25 Attending physician: Pablito Horne MD Consults: 12/22/23 09:51 Consult Physician Routine Consulting Provider: Pradeep Nieto Consult Reason/Comments: Anticoagulation recommendations, DVT, Factor V Leiden Do you want consulting provider notified?: Already Contacted Primary care physician: Stated None Hospital Course: Final Diagnosis Polysubstance abuse with IV heroin and alcohol use started on IV ativan CIWA protocol and oral librium scheduled Generalized pain likely from heroin withdrawal given IV toradol and tylenol. Recommend to avoid narcotics at this time History of heart failure systolic dysfunction repeat echocardiogram Venous stasis dermatitis /venous insufficiency and lower extremity edema started on IV lasix 40 mg Q12h recommending for SANDRA wrap bilateral lower extremities Hx of chronic right sided DVT and Factor 5 Leiden Deficiency resumed on xarelto. Hematology and vascular consultation Hx of GERD on protonix BID Hyperlipidemia not on statin therapy Hypertension currently normotensive Left total hip arthroplasty in October 2023 Obesity Chronic nicotine use Discharge Disposition Patient stable for discharge to [place] [facility]. Continue the patient on oral Lasix 40 mg daily as well as potassium supplementation daily. Patient will continue on Xarelto and needs to follow-up closely with his PCP and hematology on discharge. Hospital Course Patient is a 48 year old male with medical history of heroin and alcohol use. Patient also has history of heart failure and recent left hip replacement 2 months ago, DVT and factor 5. Patient came to [place] for rehab came over from the [facility]. He was sent to the hospital by [facility] due to lower extremity edema and concern for DVT. Bilateral lower extremity doppler taken reveals chronic DVT in the right leg and no DVT in the left leg. Due to the factor 5 deficiency xarelto has been started. Was on coumadin in the past. Patient denies any shortness of breath he is not having any chest pain. He does states his EF has been 40% in the past. Blood work reveals hgb 12.4, sodium 136, BUN 17, creatinine 0.61, magnesium 1.5. Urinalysis not suggestive of infection and drug toxicology showing benzodiazepines. He was admitted to the hospital with consult placed to vascular surgery. Has been started on ativan ciwa and librium for the withdrawal symptoms. She was started on IV Lasix for the lower extremity edema. He had an echocardiogram done which shows normal LV systolic size and function. There is right ventricular enlargement. Had a chest x-ray revealing a loop recorder, cardiomegaly with a torturous aorta, low lung volume exam. Platelike atelectasis in the left lung base. Lesser interstitial changes/scarring elsewhere. There is possible underlying COPD. Patient sodium level improved to 138 with Lasix. He was monitored overnight have any chest pain or shortness of breath. He was given Librium and Ativan for alcohol withdrawal symptoms. Patient was cleared medically and will be discharged today to [place]. Please see medication reconciliation for a list of current medications. Thank you for allowing us to participate in the care of this patient. The impression and plan of care has been dictated by Mary Patel, Nurse Practitioner as directed. Dr. Joss MD I have performed a history and physical examination and medical decision making of this patient, discussed the same with the dictator, and agree with the dictators assessment and plan as written, documented as a scribe. Based on total visit time, I have performed more than 50% of this visit. Patient Condition at Discharge: Fair Plan - Discharge Summary Discharge Rx Participant: No New Discharge Prescriptions: New Potassium Chloride ER [K-Dur 20] 20 meq PO DAILY #30 tab chlordiazePOXIDE HCl [Librium] 25 mg PO DIRECTED 3 Days #6 cap Pantoprazole [Protonix] 40 mg PO DAILY #30 tab QUEtiapine [SEROquel] 50 mg PO HS #30 tab Rivaroxaban [Xarelto] 20 mg PO W/SUPPER #30 tab Furosemide [Lasix] 40 mg PO DAILY #30 tablet Discharge Medication List Furosemide [Lasix] 40 mg PO DAILY #30 tablet 12/23/23 [Rx] Pantoprazole [Protonix] 40 mg PO DAILY #30 tab 12/23/23 [Rx] Potassium Chloride ER [K-Dur 20] 20 meq PO DAILY #30 tab 12/23/23 [Rx] QUEtiapine [SEROquel] 50 mg PO HS #30 tab 12/23/23 [Rx] Rivaroxaban [Xarelto] 20 mg PO W/SUPPER #30 tab 12/23/23 [Rx] chlordiazePOXIDE HCl [Librium] 25 mg PO DIRECTED 3 Days #6 cap 12/23/23 [Rx] Follow up Appointment(s)/Referral(s): None,Stated [Primary Care Provider] - 1-2 days Ambulatory/Diagnostic Orders: Basic Metabolic Panel [LAB.AMB] Time Frame: 3 Days, Location: None Selected Patient Instructions/Handouts: Chlordiazepoxide (By mouth), Furosemide (By mouth), Potassium Chloride (By mouth), Quetiapine (By mouth), Pantoprazole (By mouth), Rivaroxaban (By mouth), Abuse of Alcohol (DC), Stasis Dermatitis (DC), Alcohol Withdrawal (DC), Hypomagnesemia (DC), Venous Insufficiency (DC) Activity/Diet/Wound Care/Special Instructions: Prescription for compression stockings 20 to 30 mmHg given to case management Can discharge to [facility] Discharge Disposition: HOME SELF-CARE
== END 2023-12-23 14:50 | disposition other institution (70) | DRG 773 ==
LOC: EC 13:24 → 5NMEDONC 19:24 → OBSVTOIN 19:25 → 5NMEDONC 21:03
PROVIDERS: ADMIT Internal Medicine; ATTEND Internal Medicine
DX: F10.139 Alcohol abuse with withdrawal, unspecified (principal); I11.0 Hypertensive heart disease with heart failure; I50.20 Unspecified systolic (congestive) heart failure; F17.200 Nicotine dependence, unspecified, uncomplicated; E66.9 Obesity, unspecified; Z68.41 Body mass index [BMI] 40.0-44.9, adult; J98.11 Atelectasis; I82.501 Chronic embolism and thrombosis of unspecified deep veins of right lower extremity; E78.5 Hyperlipidemia, unspecified; I87.2 Venous insufficiency (chronic) (peripheral); L30.9 Dermatitis, unspecified; K21.9 Gastro-esophageal reflux disease without esophagitis; F41.9 Anxiety disorder, unspecified; D68.51 Activated protein C resistance; J44.9 Chronic obstructive pulmonary disease, unspecified; F11.13 Opioid abuse with withdrawal; E83.42 Hypomagnesemia; Z79.01 Long term (current) use of anticoagulants; Z28.21 Immunization not carried out because of patient refusal; Z96.642 Presence of left artificial hip joint; Z59.00 Homelessness unspecified
CPT/HCPCS: 36415; 71045; 80048; 80053; 80306; 81003; 81241; 83605; 83735; 83880; 85025; 93306; 96365; 96366; 96375; 99285